=== PATIENT | male | born 1985 | race Caucasian/White ===

== ENCOUNTER → 2016-11-03 | Outpatient (CLI) | payer OTHER ==
--- NOTE | 2016-11-03 15:38 | DIAGNOSTIC IMAGING REPORT ---
MRI left foot LEFT LOWER EXT NON JOINT W/O CLINICAL HISTORY: PAIN IN LEFT FOOT nodule TECHNIQUE: MRI multi axial acquisition COMPARISON STUDY: None FINDINGS: Signal characteristics the osseous structures appear unremarkable. Metallic artifact is identified overlying the distal fibular shaft. All major ligamentous and tendinous structures are intact. Structures the plantar fascia are in general unremarkable. At the site of clinically palpable nodularity within the subcutaneous fat. This measures 10 x 9 x 8 mm. Is on the surface of the muscle bundle but there is no evidence for involvement of the muscular structures. IMPRESSION: 1. Nodular density within the subcutaneous fat immediately superficial to the plantar fascia. 2. This measures 10 x 9 x 8 mm. 3. Differential considerations include neuroma, granuloma, versus atypical complex ganglion cyst. 4. All remaining components of the study are unremarkable. 5. All major ligamentous and tendinous structures are intact Electronically signed by: Sunil Vasquez M.D. 11/03/2016 3:37 PM Dictated Date/Time: 11/03/2016 3:30 PM
== END | disposition home or self-care (01) ==
LOC: C.MRI 13:29
PROVIDERS: ATTEND Podiatrist
DX: M79.672 Pain in left foot (principal); M25.872 Other specified joint disorders, left ankle and foot